=== PATIENT | female | born 1990 | race Asian ===

== ENCOUNTER 2021-02-13 07:43 | Observation (INO) ==
[2021-02-13] MEDS ORDERED: TERBUTALINE SULFATE 1 MG/ML VIAL SQ ONE (08:22)
[2021-02-13 08:36] LABS: Basophils # (auto) 0.02 K/uL (0-0.2); Basophils % (auto) 0.2 %; Eosinophils # (auto) 0.16 K/uL (0-0.5); Eosinophils % (auto) 1.9 %; Hemoglobin 11.8 g/dL (12.0-16.0); Immature Granulocytes # (auto) 0.05 K/uL (0.00-0.02); Immature Granulocytes % (auto) 0.6 %; Lymphocytes # (auto) 1.85 K/uL (1.2-3.4); Lymphocytes % (auto) 21.6 %; Mean Corpuscular Hemoglobin 30.4 pg (25-34); Mean Corpuscular Hgb Conc 33.7 g/dL (32-36); Mean Corpuscular Volume 90.2 fL (80-100); Mean Platelet Volume 9.9 fL (7.4-10.4); Monocytes # (auto) 0.64 K/uL (0.11-0.59); Monocytes % (auto) 7.5 %; Neutrophils # (auto) 5.86 K/uL (1.4-6.5); Neutrophils % (auto) 68.2 %; Platelet Count 189 K/uL (130-400); RDW Standard Deviation 42.7 fL (36.4-46.3); Red Blood Count 3.88 M/uL (4.2-5.4); White Blood Count 8.58 K/uL (4.8-10.8)
--- NOTE | 2021-02-13 08:46 | History & Physical Report ---
Date of Service February 13, 2021 Assessment & Plan (1) Breech presentation: (2) 36 weeks gestation of : Plan: patient aware of options with breech presentation of fetus, can do nothing, plan 39wk c/s if still breech, reviewed breech exercises, can attempt ecv. In my hands, pt aware ecv success rate is 50-50 and baby could turn back. Risks like abruption, bleeding, PROM, PTL, distress, need for emergency delivery, emergency c/s reviewed. Patient desires ecv and consent reviewed and signed. Plan terbutaline prior to attempt, explained rationale. They deny questions and want to proceed. Admission and Anticipated Discharge Date Admission Date: February 13, 2021 History of Present Illness Chief Complaint: breech presentation of fetus for planned ecv Primary Care Provider: [facility] 30yo at 36+wks ega presents to L&D with above CC. She notes no changes overnight. Was seen for her routine visit yesterday and noted to be breech. Formal u/s with nl dvp and no nuchal. She was counseled about options and de sires trial of ecv. PNC c/b 1. breech presentation PNL rh pos, ri, gbs done yesterday OBH: g1 GYNH: nl pap no stds Allergies Allergy/AdvReac Type Severity Reaction Status Date / Time No Known Drug Allergies Allergy Verified 02/12/21 13:55 lactose AdvReac Unknown GI upset Verified 02/12/21 13:55 bandaid AdvReac Mild itchy Uncoded 02/12/21 13:55 dust AdvReac Unknown runny nose Uncoded 02/12/21 13:55 Home Medications Medication Instructions Recorded Confirmed Type prenat.vits,liya,ejq-fvdo-puoye 1 tab PO DAILY 08/20/20 02/12/21 History Breast Pump #1 ea 12/18/20 02/12/21 Rx Patient History Medical History (Updated 02/13/21 @ 08:44 by Zoila Ocampo MD, FACOG) Enlarged thyroid Right thyroid nodule Known since 2018, cystic solid >5 cm s/p FNA in 08/2020 benign follicular Family History (Updated 08/20/20 @ 15:18 by Nisa Barron) Other Hypertension Social History (Updated 02/10/21 @ 15:19 by Nisa Barron) Smoking Status: Never smoker Hx Alcohol Use: No Hx Substance Use: No Preferred Language: Mandarin Macedonian Beliefs That Will Affect Care: None marital status: marital status details: Alex (35) [phone] Current Living Situation: Spouse Current Living Situation Comment: lives with spouse. current occupational status: unemployed Other Information That Helps Us Care for You: No Feels Safe at Home: Yes Safety Concerns: Feels Safe At This Time Assistive Devices: None Review of Systems as per Subjective / HPI; no problem reported Physical Exam Constitutional: WD/WN, vitals as above Gastrointestinal (Abdomen): soft gravid nt Neurologic: grossly normal Psychiatric: A+Ox3, euthymic affect Genitourinary: OB Exam Abdomen: + breech (by u/s this am) OB Exam Monitor Tracing: + external FHT monitor used (130 mod variability, reactive), + external uterine monitor used (irreg), + category I and + normal FHT variability Results & Data ([facility]) Vital Signs (Past 12 Hours) Vital Signs Temp Resp 02/13/21 07:56 98.1 F 20 Coding Level of Care Code None Diagnoses Breech presentation O32.1XX0 36 weeks gestation of Z3A.36
--- NOTE | 2021-02-13 09:08 | Obstetrical Progress Note ---
Date of Service February 13, 2021 Assessment & Plan (1) Breech presentation: (2) 36 weeks gestation of : Plan: ECV successful. Will monitor fhts for about one hour and then plan d/c home FHTs 140, categ 1 thus far. Admission and Anticipated Discharge Date Admission Date: February 13, 2021 Subjective S/p terbutaline Physical Exam Genitourinary: PROCEDURE: backward roll attempted at first and fetus to cephalic, fhts 140s, successful ecv Results & Data ([facility]) Vital Signs (Past 12 Hours) Vital Signs Temp Pulse Resp BP Pulse Ox 02/13/21 09:01 99 H 100 02/13/21 08:56 88 99 02/13/21 08:51 98 H 100 02/13/21 08:46 94 H 98 02/13/21 08:45 84 103/62 02/13/21 07:56 98.1 F 20 02/13/21 07:51 98.1 F 20 PG Care Time/CCT Total # of Minutes Spent Total Time Spent with Patient: Total time spent is greater than 50% in coordination of care (as documented) at patient's floor/unit and/or counseling patient: Coding Level of Care Code None Diagnoses Breech presentation O32.1XX0 36 weeks gestation of Z3A.36 CPT Codes Misx Procedure Codes - 86119 NST: 77543 NST ([id number]) Misx Procedure Codes - 54497 External cephalic version: 97657 External cephalic version ([id number]) 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
--- NOTE | 2021-02-13 11:21 | Obstetrical Progress Note ---
Date of Service February 13, 2021 Assessment & Plan (1) 36 weeks gestation of : (2) Successful external cephalic version: Plan: stable, can go home. has appt next wk. call with any concerns. remains cephalic. fhts reactive, categ 1. Admission and Anticipated Discharge Date Admission Date: February 13, 2021 Subjective pt sleeping , denies pain. no rom, no vb. Physical Exam Genitourinary: OB Exam Abdomen: + vertex (by u/s) OB Exam Monitor Tracing: + external FHT monitor used (reactive ,categ 1. ), + external uterine monitor used (irritability, now irregular ctx. ), + category I and + normal FHT nehal iability Results & Data ([facility]) Vital Signs (Past 12 Hours) Vital Signs Temp Pulse Resp BP Pulse Ox 02/13/21 11:11 74 97 02/13/21 11:06 76 97 02/13/21 11:01 75 97 02/13/21 10:56 79 98 02/13/21 10:51 83 96 02/13/21 10:46 82 97 02/13/21 10:41 83 97 02/13/21 10:36 96 H 97 02/13/21 10:31 83 96 02/13/21 10:11 72 97 02/13/21 10:06 70 97 02/13/21 10:01 75 96 02/13/21 09:56 71 97 02/13/21 09:51 72 96 02/13/21 09:46 82 98 02/13/21 09:41 79 98 02/13/21 09:36 83 98 02/13/21 09:31 90 98 02/13/21 09:26 89 99 02/13/21 09:21 90 98 02/13/21 09:16 99 H 98 02/13/21 09:11 96 H 98 02/13/21 09:06 95 H 99 02/13/21 09:01 99 H 100 02/13/21 08:56 88 99 02/13/21 08:51 98 H 100 02/13/21 08:46 94 H 98 02/13/21 08:45 84 103/62 02/13/21 07:56 98.1 F 20 02/13/21 07:51 98.1 F 20 PG Care Time/CCT Total # of Minutes Spent Total Time Spent with Patient: Total time spent is greater than 50% in coordination of care (as documented) at patient's floor/unit and/or counseling patient: Coding Level of Care Code None Diagnoses 36 weeks gestation of Z3A.36 Successful external cephalic version
--- NOTE | 2021-02-14 21:40 | Discharge Summary ---
Date of Service Date of admission and discharge: February 13, 2021 Admission HPI Per Admitting Provider 30yo at 36+wks [place] presents to L&D with plan for ECV for breech presentation. She notes no changes overnight. Was seen for her routine visit yesterday and noted to be breech. Formal u/s with nl dvp and no nuchal. She was counseled about options and desires trial of ecv. PNC c/b 1. breech presentation PNL rh pos, ri, gbs done yesterday OBH: g1 GYNH: nl pap no stds Discharge Data Procedures Performed External Cephalic Version Hospital Course (1) 36 weeks gestation of : (2) Breech presentation: (3) Successful external cephalic version: The patient underwent the above stated procedure which was successful. She was monitored for a few hours subsequenty and when stable was sent home. The fetus remained cephalic. She will followup in office as schedued. Parameters reviewed to call. Coding Level of Care Code None Diagnoses 36 weeks gestation of Z3A.36 Breech presentation O32.1XX0 Successful external cephalic version
== END 2021-02-13 11:33 | disposition home or self-care (01) ==
LOC: 4S1 → OPB 07:56 → INTOOBSV 07:56 → EDSTATUS 10:15 → PREOBSVTOIN 10:24 → PREINTOOBSV 10:25

== ENCOUNTER 2021-03-17 23:04 | Inpatient (IN) ==
[2021-03-17] MEDS ORDERED: OXYTOCIN 30 UNITS/500 ML BAG IV PRN ×2 (23:16→23:17)
[2021-03-17 23:37] LABS: Hematocrit (blood only) 35.4 % (37-47); Mean Corpuscular Hemoglobin 30.2 pg (25-34); Mean Corpuscular Hgb Conc 33.9 g/dL (32-36); Mean Corpuscular Volume 88.9 fL (80-100); Mean Platelet Volume 10.6 fL (7.4-10.4); Platelet Count 207 K/uL (130-400); RDW Coefficient of Variation 13.4 % (11.5-14.5); Red Blood Count 3.98 M/uL (4.2-5.4); White Blood Count 9.42 K/uL (4.8-10.8)
--- NOTE | 2021-03-18 00:11 | Anesthesiology Consultation ---
Date of Service March 18, 2021 Assessment & Plan (1) Encounter for pre-operative examination: Chart Review Chart Review: Acceptable Risk for Labor Epidural History Height/Weight Height: 5 ft 2 in Weight: 63.503 kg Allergies Allergy/AdvReac Type Severity Reaction Status Date / Time No Known Drug Allergies Allergy Rash Verified 03/17/21 19:58 bandaid Allergy Mild itchy Uncoded 03/17/21 19:58 dust Allergy Unknown Congested Uncoded 03/17/21 19:58 Medications Home Medications Medication Instructions Recorded Confirmed Last Taken prenat.vits,liya,xrw-uqdk-rceou 1 tab PO DAILY 08/20/20 03/17/21 Unknown Breast Pump #1 ea 12/18/20 03/17/21 Unknown Active Medications Generic Name Dose Route Start Last Admin Trade Name Freq PRN Reason Stop Dose Admin Oxytocin 30 units in 500 mls @ 1 mls/hr 03/17/21 23:17 03/18/21 00:13 Pitocin IV 03/19/21 23:16 0.06 units/hr .Q24H PRN 1 mls/hr Labor Induction/Augmentation Administration Protocol 0.06 UNITS/HR Lactated Ringer's 1,000 mls @ 125 mls/hr 03/17/21 23:16 03/18/21 00:13 Lr IV 03/19/21 23:15 999 mls/hr .Q8H PRN Administration L&D Protocol Protocol Past Medical History Medical History (Updated 03/18/21 @ 00:52 by Mark Aguayo MD) Enlarged thyroid Right thyroid nodule Known since 2017, cystic solid >5 cm s/p FNA in 08/2020 benign follicular Past Family History Family History Other Hypertension Past Surgical History Surgical History (Updated 03/18/21 @ 00:11 by Mark Aguayo MD) No significant past surgical history Social History Smoking Status: Never smoker Hx Alcohol Use: No Hx Substance Use: No Physical Exam Vital Signs Last Vital Signs Temp 36.9 C 03/17/21 23:18 Pulse 94 H 03/18/21 00:42 Resp 18 03/18/21 00:30 BP 111/66 03/18/21 00:14 Pulse Ox 97 03/18/21 00:42 Testing Laboratory Results 03/17/21 23:26
[2021-03-18] MEDS: LACTATED RINGER'S 1,000 ML IV PRN ×5 (00:13→18:33)
[2021-03-18] MEDS ORDERED: fentaNYL citrate 100 MCG/2 ML VIAL ONE (00:17)
[2021-03-18] MEDS ORDERED: BUPIVACAINE 0.25% 30 ML VIAL ONE (00:17)
[2021-03-18] MEDS ORDERED: fentaNYL 2MCG/ML ROPIVACAINE 1.25MG/ML 100 ML BAG EPI ONE (00:17)
[2021-03-18] MEDS ORDERED: SODIUM CHLORIDE 0.9% INJ 10 ML VIAL ONE (00:17)
[2021-03-18] MEDS ORDERED: ePHEDrine sulfate 50 MG/ML AMP ONE (00:17)
[2021-03-18] MEDS ORDERED: NALOXONE HCL 1 MG in SODIUM CHLORIDE 0.9% 1000ML 1,000 ML IV PRN ×2 (01:09→20:44)
[2021-03-18] MEDS ORDERED: NALOXONE HCL 0.4 MG/1 ML VIAL/CARP IV PRN ×2 (01:09→20:44)
[2021-03-18] MEDS ORDERED: ePHEDrine sulfate 50 MG/ML AMP IV PRN ×2 (01:09→20:44)
[2021-03-18] MEDS ORDERED: ONDANSETRON INJ 2 MG/ML 2 ML VIAL IV PRN ×2 (01:09→20:44)
--- NOTE | 2021-03-18 06:19 | Labor Progress Brief Note ---
Date of Service March 18, 2021 Subjective comfortable with epidural Assessment & Plan (1) 40 weeks gestation of : Plan: making nice change, arom, continue current management. anticipate . Admission and Anticipated Discharge Date Admission Date: March 17, 2021 Physical Exam Physical Exam: cx--5-6/75/-2 arom--copious clear toco--q1-2min, pit at 12 efm--145 with min/mod variability, small accels, no decels Results & Data ([facility]) Vital Signs (Past 12 Hours) Vital Signs Temp Pulse Resp BP Pulse Ox 03/18/21 06:12 76 98 03/18/21 06:07 67 98 03/18/21 06:02 69 96 03/18/21 06:01 91 H 97/60 L 03/18/21 05:57 83 96 03/18/21 05:52 66 96 03/18/21 05:47 66 101/59 L 96 03/18/21 05:42 68 95 03/18/21 05:37 73 95 03/18/21 05:32 70 110/55 L 96 03/18/21 05:30 18 03/18/21 05:27 65 97 03/18/21 05:22 67 97 03/18/21 05:17 67 97 03/18/21 05:16 72 135/63 03/18/21 05:12 88 97 03/18/21 05:07 90 97 03/18/21 05:02 64 96 03/18/21 05:00 18 03/18/21 04:57 64 96 03/18/21 04:52 67 96 03/18/21 04:47 66 97 03/18/21 04:42 66 97 03/18/21 04:37 74 96 03/18/21 04:32 64 96 03/18/21 04:31 71 110/70 03/18/21 04:30 18 03/18/21 04:27 64 96 03/18/21 04:22 68 97 03/18/21 04:17 66 106/66 96 03/18/21 04:12 76 96 03/18/21 04:07 76 96 03/18/21 04:03 80 99/58 L 03/18/21 04:02 78 95 03/18/21 03:59 36.9 C 18 03/18/21 03:57 73 96 03/18/21 03:52 77 95 03/18/21 03:47 80 95 03/18/21 03:42 68 95 03/18/21 03:37 66 95 03/18/21 03:32 74 95 03/18/21 03:27 68 94 03/18/21 03:22 72 94 03/18/21 03:17 66 95 03/18/21 03:12 72 94 03/18/21 03:07 69 95 03/18/21 03:02 72 95 03/18/21 03:01 65 95/54 L 03/18/21 02:57 72 95 03/18/21 02:52 69 94 03/18/21 02:47 71 94 03/18/21 02:46 69 102/55 L 03/18/21 02:42 70 92 03/18/21 02:37 69 94 03/18/21 02:32 74 94 03/18/21 02:31 64 97/53 L 03/18/21 02:30 18 03/18/21 02:27 73 93 03/18/21 02:22 69 94 03/18/21 02:17 68 94 03/18/21 02:16 70 103/56 L 03/18/21 02:12 67 94 03/18/21 02:07 69 93 03/18/21 02:02 70 94 03/18/21 02:01 70 101/55 L 03/18/21 02:00 20 03/18/21 01:57 74 94 03/18/21 01:52 68 95 03/18/21 01:50 69 94 03/18/21 01:47 78 110/63 94 03/18/21 01:45 79 94 03/18/21 01:42 70 95 03/18/21 01:38 79 94 03/18/21 01:37 75 95 03/18/21 01:32 76 95 03/18/21 01:30 79 20 99/60 L 94 03/18/21 01:27 78 97 03/18/21 01:26 79 103/62 03/18/21 01:22 82 100/55 L 95 03/18/21 01:19 75 103/57 L 03/18/21 01:17 90 97 03/18/21 01:15 36.9 C 18 03/18/21 01:14 79 101/57 L 03/18/21 01:12 76 97/54 L 97 03/18/21 01:10 75 18 103/59 L 03/18/21 01:08 75 107/66 03/18/21 01:07 78 98 03/18/21 01:06 74 106/64 03/18/21 01:04 85 119/57 L 03/18/21 01:02 85 20 111/72 95 03/18/21 01:00 90 116/73 03/18/21 00:57 82 96 03/18/21 00:54 18 03/18/21 00:52 86 96 03/18/21 00:47 90 96 03/18/21 00:42 94 H 97 03/18/21 00:35 92 H 96 03/18/21 00:30 89 18 96 03/18/21 00:25 91 H 96 03/18/21 00:20 82 96 03/18/21 00:15 83 97 03/18/21 00:14 73 111/66 03/17/21 23:18 36.9 C 88 18 104/55 L 03/17/21 23:15 88 104/55 L 03/17/21 23:12 36.9 C 20 Coding Level of Care Code None Diagnoses 40 weeks gestation of Z3A.40
--- NOTE | 2021-03-18 08:55 | Labor Progress Brief Note ---
Date of Service March 18, 2021 Subjective Comfortable with epidural. Assessment & Plan (1) Post term over 40 weeks: Plan: Induction of labor in progress. Of note, this patient underwent successful ECV for breech presentation a few weeks ago. The fetus is vertex but transverse and asynclitic currently, without interval progress since last exam and with a dysfunctional contraction pattern. This may be able to be surpassed with repositioning and pitocin titration, and for now there is no indication to abandon the induction attempt. Repositioning and titration are ongoing. status with accel obtained is reassuring. Admission and Anticipated Discharge Date Admission Date: March 17, 2021 Physical Exam Physical Exam: Cervix 5-6/75/-2, clear LOF continues, head palpates in LOT with posterior asynclitism. [place] dysfunctional pattern, 4 contractions less than a minute apart followed by 4-5min break. Pit @ 13. FHT Cat 2, normal baseline and variability but demonstrates a late decel by the end of a run of 4 closely spaced contractions. Of note, + scalp stimulation accel during exam. Results & Data ([facility]) Vital Signs (Past 12 Hours) Vital Signs Temp Pulse Resp BP Pulse Ox 03/18/21 08:47 60 97/55 L 98 03/18/21 08:42 69 96 03/18/21 08:37 62 97 03/18/21 08:32 56 L 106/67 96 03/18/21 08:27 62 95 03/18/21 08:22 53 L 95 03/18/21 08:17 56 L 96 03/18/21 08:16 53 L 108/69 03/18/21 08:12 55 L 96 03/18/21 08:07 56 L 97 03/18/21 08:02 66 97 03/18/21 08:01 58 L 20 94/55 L 03/18/21 07:57 54 L 96 03/18/21 07:52 62 96 03/18/21 07:47 53 L 97 03/18/21 07:46 53 L 104/53 L 03/18/21 07:42 60 97 03/18/21 07:37 61 97 03/18/21 07:32 59 L 96 03/18/21 07:31 98.4 F 64 20 113/57 L 03/18/21 07:27 58 L 98 03/18/21 07:22 57 L 97 03/18/21 07:17 61 104/59 L 96 03/18/21 07:12 56 L 97 03/18/21 07:07 60 96 03/18/21 07:02 61 95 03/18/21 07:01 56 L 93/53 L 03/18/21 07:00 18 03/18/21 06:57 57 L 96 03/18/21 06:52 59 L 96 03/18/21 06:47 63 97 03/18/21 06:42 62 97 03/18/21 06:37 63 97 03/18/21 06:32 63 96 03/18/21 06:31 62 120/50 L 03/18/21 06:30 18 03/18/21 06:27 62 97 03/18/21 06:22 61 97 03/18/21 06:18 60 92/55 L 03/18/21 06:17 71 97 03/18/21 06:12 76 98 03/18/21 06:11 98.2 F 03/18/21 06:07 67 98 03/18/21 06:02 69 96 03/18/21 06:01 91 H 97/60 L 03/18/21 05:57 83 96 03/18/21 05:52 66 96 03/18/21 05:47 66 101/59 L 96 03/18/21 05:42 68 95 03/18/21 05:37 73 95 03/18/21 05:32 70 110/55 L 96 03/18/21 05:30 18 03/18/21 05:27 65 97 03/18/21 05:22 67 97 03/18/21 05:17 67 97 03/18/21 05:16 72 135/63 03/18/21 05:12 88 97 03/18/21 05:07 90 97 03/18/21 05:02 64 96 03/18/21 05:00 18 03/18/21 04:57 64 96 03/18/21 04:52 67 96 03/18/21 04:47 66 97 03/18/21 04:42 66 97 03/18/21 04:37 74 96 03/18/21 04:32 64 96 03/18/21 04:31 71 110/70 03/18/21 04:30 18 03/18/21 04:27 64 96 03/18/21 04:22 68 97 03/18/21 04:17 66 106/66 96 03/18/21 04:12 76 96 03/18/21 04:07 76 96 03/18/21 04:03 80 99/58 L 03/18/21 04:02 78 95 03/18/21 03:59 98.4 F 18 03/18/21 03:57 73 96 03/18/21 03:52 77 95 03/18/21 03:47 80 95 03/18/21 03:42 68 95 03/18/21 03:37 66 95 03/18/21 03:32 74 95 03/18/21 03:27 68 94 03/18/21 03:22 72 94 03/18/21 03:17 66 95 03/18/21 03:12 72 94 03/18/21 03:07 69 95 03/18/21 03:02 72 95 03/18/21 03:01 65 95/54 L 03/18/21 02:57 72 95 03/18/21 02:52 69 94 03/18/21 02:47 71 94 03/18/21 02:46 69 102/55 L 03/18/21 02:42 70 92 03/18/21 02:37 69 94 03/18/21 02:32 74 94 03/18/21 02:31 64 97/53 L 03/18/21 02:30 18 03/18/21 02:27 73 93 03/18/21 02:22 69 94 03/18/21 02:17 68 94 03/18/21 02:16 70 103/56 L 03/18/21 02:12 67 94 03/18/21 02:07 69 93 03/18/21 02:02 70 94 03/18/21 02:01 70 101/55 L 03/18/21 02:00 20 03/18/21 01:57 74 94 03/18/21 01:52 68 95 03/18/21 01:50 69 94 03/18/21 01:47 78 110/63 94 03/18/21 01:45 79 94 03/18/21 01:42 70 95 03/18/21 01:38 79 94 03/18/21 01:37 75 95 03/18/21 01:32 76 95 03/18/21 01:30 79 20 99/60 L 94 03/18/21 01:27 78 97 03/18/21 01:26 79 103/62 03/18/21 01:22 82 100/55 L 95 03/18/21 01:19 75 103/57 L 03/18/21 01:17 90 97 03/18/21 01:15 98.4 F 18 03/18/21 01:14 79 101/57 L 03/18/21 01:12 76 97/54 L 97 03/18/21 01:10 75 18 103/59 L 03/18/21 01:08 75 107/66 03/18/21 01:07 78 98 03/18/21 01:06 74 106/64 03/18/21 01:04 85 119/57 L 03/18/21 01:02 85 20 111/72 95 03/18/21 01:00 90 116/73 03/18/21 00:57 82 96 03/18/21 00:54 18 03/18/21 00:52 86 96 03/18/21 00:47 90 96 03/18/21 00:42 94 H 97 03/18/21 00:35 92 H 96 03/18/21 00:30 89 18 96 03/18/21 00:25 91 H 96 03/18/21 00:20 82 96 03/18/21 00:15 83 97 03/18/21 00:14 73 111/66 03/17/21 23:18 98.4 F 88 18 104/55 L 03/17/21 23:15 88 104/55 L 03/17/21 23:12 98.4 F 20 Coding Level of Care Code None Diagnoses Post term over 40 weeks O48.0
[2021-03-18] MEDS: fentaNYL 2MCG/ML ROPIVACAINE 1.25MG/ML 100 ML BAG EPI PRN ×2 (10:12→16:59)
[2021-03-18] MEDS ORDERED: NURSING L&D Epidural Breakthrough Pain Update ONE (10:56)
--- NOTE | 2021-03-18 12:10 | Labor Progress Brief Note ---
Date of Service March 18, 2021 Subjective Some new low back ache despite epidural. Assessment & Plan (1) Post term over 40 weeks: Plan: Patient has made cervical change but it's less than I would have expected for the number of hours that have passed. repositioning is still occurring, as asynclitism resolved, but at this time it still feels like an LOT presentation. I'm hopeful that with adequate contractions we may see the head rotate into an A/P presentation and then it may descend and more effectively cause cervical dilation to proceed - but patient and FOB were made aware that persistent OT presentation could occur and would interfere with success in vaginal delivery. Increasing pitocin is difficult since many of the contractions are too close together to allow it, but at other times there are long breaks in the pattern. IUPC could be used to allow titration upwards based on MVUs. IUPC placed after full information given to patient and FOB about relative risks and benefits, who gave verbal consent. Titrate to MVU 200-250. status allows for ongoing attempts at IOL at this time. Epidural bolus dose will be requested for patient's back ache as we are not very close to delivery. Admission and Anticipated Discharge Date Admission Date: March 17, 2021 Physical Exam Physical Exam: /1 Remains LOT but asynclitism is resolved FHT cat 1 with earlies [place] irregular; at times Q1-2, other times clusters with breaks in between Pit @ 15 LOF clear continues, small bloody show Results & Data ([facility]) Vital Signs (Past 12 Hours) Vital Signs Temp Pulse Resp BP Pulse Ox 03/18/21 12:02 72 113/70 100 03/18/21 11:57 68 99 03/18/21 11:52 66 100 03/18/21 11:47 57 L 131/69 99 03/18/21 11:42 63 99 03/18/21 11:37 66 99 03/18/21 11:34 69 113/55 L 03/18/21 11:32 73 99 03/18/21 11:31 20 03/18/21 11:27 68 100 03/18/21 11:22 82 100 03/18/21 11:17 76 124/77 100 03/18/21 11:12 78 100 03/18/21 11:07 66 99 03/18/21 11:02 66 110/73 99 03/18/21 11:01 20 03/18/21 10:57 72 96 03/18/21 10:52 79 97 03/18/21 10:47 75 97 03/18/21 10:46 58 L 102/63 03/18/21 10:42 58 L 95 03/18/21 10:37 59 L 96 03/18/21 10:32 56 L 124/71 95 03/18/21 10:31 20 03/18/21 10:27 60 96 03/18/21 10:22 57 L 96 03/18/21 10:17 60 97 03/18/21 10:16 68 139/67 03/18/21 10:12 65 97 03/18/21 10:08 98.2 F 03/18/21 10:07 58 L 97 03/18/21 10:02 76 96 03/18/21 10:01 18 03/18/21 09:57 56 L 97 03/18/21 09:52 59 L 95 03/18/21 09:47 60 96 03/18/21 09:46 57 L 91/55 L 03/18/21 09:42 57 L 96 03/18/21 09:37 57 L 96 03/18/21 09:32 58 L 96 03/18/21 09:31 62 93/55 L 03/18/21 09:27 61 97 03/18/21 09:22 57 L 97 03/18/21 09:18 56 L 92/65 L 03/18/21 09:17 57 L 97 03/18/21 09:12 60 98 03/18/21 09:07 69 98 03/18/21 09:02 57 L 96 03/18/21 09:01 98.4 F 52 L 20 95/50 L 03/18/21 08:57 55 L 97 03/18/21 08:52 62 98 03/18/21 08:47 60 97/55 L 98 03/18/21 08:42 69 96 03/18/21 08:37 62 97 03/18/21 08:32 56 L 106/67 96 03/18/21 08:31 20 03/18/21 08:27 62 95 03/18/21 08:22 53 L 95 03/18/21 08:17 56 L 96 03/18/21 08:16 53 L 108/69 03/18/21 08:12 55 L 96 03/18/21 08:07 56 L 97 03/18/21 08:02 66 97 03/18/21 08:01 58 L 20 94/55 L 03/18/21 07:57 54 L 96 03/18/21 07:52 62 96 03/18/21 07:47 53 L 97 03/18/21 07:46 53 L 104/53 L 03/18/21 07:42 60 97 03/18/21 07:37 61 97 03/18/21 07:32 59 L 96 03/18/21 07:31 98.4 F 64 20 113/57 L 03/18/21 07:27 58 L 98 03/18/21 07:22 57 L 97 03/18/21 07:17 61 104/59 L 96 03/18/21 07:12 56 L 97 03/18/21 07:07 60 96 03/18/21 07:02 61 95 03/18/21 07:01 56 L 93/53 L 03/18/21 07:00 18 03/18/21 06:57 57 L 96 03/18/21 06:52 59 L 96 03/18/21 06:47 63 97 03/18/21 06:42 62 97 03/18/21 06:37 63 97 03/18/21 06:32 63 96 03/18/21 06:31 62 120/50 L 03/18/21 06:30 18 03/18/21 06:27 62 97 03/18/21 06:22 61 97 03/18/21 06:18 60 92/55 L 03/18/21 06:17 71 97 03/18/21 06:12 76 98 03/18/21 06:11 98.2 F 03/18/21 06:07 67 98 03/18/21 06:02 69 96 03/18/21 06:01 91 H 97/60 L 03/18/21 05:57 83 96 03/18/21 05:52 66 96 03/18/21 05:47 66 101/59 L 96 03/18/21 05:42 68 95 03/18/21 05:37 73 95 03/18/21 05:32 70 110/55 L 96 03/18/21 05:30 18 03/18/21 05:27 65 97 03/18/21 05:22 67 97 03/18/21 05:17 67 97 03/18/21 05:16 72 135/63 03/18/21 05:12 88 97 03/18/21 05:07 90 97 03/18/21 05:02 64 96 03/18/21 05:00 18 03/18/21 04:57 64 96 03/18/21 04:52 67 96 03/18/21 04:47 66 97 03/18/21 04:42 66 97 03/18/21 04:37 74 96 03/18/21 04:32 64 96 03/18/21 04:31 71 110/70 03/18/21 04:30 18 03/18/21 04:27 64 96 03/18/21 04:22 68 97 03/18/21 04:17 66 106/66 96 03/18/21 04:12 76 96 03/18/21 04:07 76 96 03/18/21 04:03 80 99/58 L 03/18/21 04:02 78 95 03/18/21 03:59 98.4 F 18 03/18/21 03:57 73 96 03/18/21 03:52 77 95 03/18/21 03:47 80 95 03/18/21 03:42 68 95 03/18/21 03:37 66 95 03/18/21 03:32 74 95 03/18/21 03:27 68 94 03/18/21 03:22 72 94 03/18/21 03:17 66 95 03/18/21 03:12 72 94 03/18/21 03:07 69 95 03/18/21 03:02 72 95 03/18/21 03:01 65 95/54 L 03/18/21 02:57 72 95 03/18/21 02:52 69 94 03/18/21 02:47 71 94 03/18/21 02:46 69 102/55 L 03/18/21 02:42 70 92 03/18/21 02:37 69 94 03/18/21 02:32 74 94 03/18/21 02:31 64 97/53 L 03/18/21 02:30 18 03/18/21 02:27 73 93 03/18/21 02:22 69 94 03/18/21 02:17 68 94 03/18/21 02:16 70 103/56 L 03/18/21 02:12 67 94 03/18/21 02:07 69 93 03/18/21 02:02 70 94 03/18/21 02:01 70 101/55 L 03/18/21 02:00 20 03/18/21 01:57 74 94 03/18/21 01:52 68 95 03/18/21 01:50 69 94 03/18/21 01:47 78 110/63 94 03/18/21 01:45 79 94 03/18/21 01:42 70 95 03/18/21 01:38 79 94 03/18/21 01:37 75 95 03/18/21 01:32 76 95 03/18/21 01:30 79 20 99/60 L 94 03/18/21 01:27 78 97 03/18/21 01:26 79 103/62 03/18/21 01:22 82 100/55 L 95 03/18/21 01:19 75 103/57 L 03/18/21 01:17 90 97 03/18/21 01:15 98.4 F 18 03/18/21 01:14 79 101/57 L 03/18/21 01:12 76 97/54 L 97 03/18/21 01:10 75 18 103/59 L 03/18/21 01:08 75 107/66 03/18/21 01:07 78 98 03/18/21 01:06 74 106/64 03/18/21 01:04 85 119/57 L 03/18/21 01:02 85 20 111/72 95 03/18/21 01:00 90 116/73 03/18/21 00:57 82 96 03/18/21 00:54 18 03/18/21 00:52 86 96 03/18/21 00:47 90 96 03/18/21 00:42 94 H 97 03/18/21 00:35 92 H 96 03/18/21 00:30 89 18 96 03/18/21 00:25 91 H 96 03/18/21 00:20 82 96 03/18/21 00:15 83 97 03/18/21 00:14 73 111/66 Coding Level of Care Code None Diagnoses Post term over 40 weeks O48.0
--- NOTE | 2021-03-18 14:19 | Labor Progress Brief Note ---
Date of Service March 18, 2021 Subjective Back pain resolved when external toco monitor and strap were removed per patient. Assessment & Plan (1) Post term over 40 weeks: Plan: Discussed with patient and FOB that she has had adequate contractions for 2 hours (documented since placement of IUPC at noon), and we define failure as 6 hours without change, but that I suspect her lack of change is due to persistent transverse position more than inadequate labor. She was offered options to continue IOL to reach 6 hours of adequacy, then reassess cervix, and understand we would recommend at that time if no further change - or she could elect to move to at any time before then should she not wish to continue, as risks of atony and infection increase with each hour of ongoing induction. Patient is considering her options at this time. Admission and Anticipated Discharge Date Admission Date: March 17, 2021 Physical Exam Physical Exam: Cervix unchanged, fetus remains LOT FHT Cat 1 with early decels Zaira Q2-4 but MVU adequate 200-260 since IUPC placed (so, at noon --> 6pm would be 6 hours adequate) Results & Data ([facility]) Vital Signs (Past 12 Hours) Vital Signs Temp Pulse Resp BP Pulse Ox 03/18/21 14:12 68 97 03/18/21 14:07 65 98 03/18/21 14:02 72 98 03/18/21 14:01 62 120/56 L 03/18/21 13:57 67 97 03/18/21 13:52 88 97 03/18/21 13:47 71 98 03/18/21 13:42 61 97 03/18/21 13:37 67 96 03/18/21 13:32 78 96 03/18/21 13:31 88 98/65 L 03/18/21 13:27 70 95 03/18/21 13:22 74 97 03/18/21 13:17 68 94 03/18/21 13:16 69 100/62 03/18/21 13:12 72 96 03/18/21 13:07 75 97 03/18/21 13:02 68 95 03/18/21 13:01 68 99/65 L 03/18/21 12:57 66 96 03/18/21 12:52 72 96 03/18/21 12:47 74 96 03/18/21 12:46 61 101/64 03/18/21 12:42 68 96 03/18/21 12:37 65 96 03/18/21 12:32 64 96 03/18/21 12:31 60 124/78 03/18/21 12:27 60 96 03/18/21 12:22 66 97 03/18/21 12:17 87 99 03/18/21 12:16 62 121/66 03/18/21 12:12 69 99 03/18/21 12:07 65 99 03/18/21 12:02 72 113/70 100 03/18/21 11:57 68 99 03/18/21 11:52 66 100 03/18/21 11:47 57 L 131/69 99 03/18/21 11:42 63 99 03/18/21 11:37 66 99 03/18/21 11:34 69 113/55 L 03/18/21 11:32 73 99 03/18/21 11:31 20 03/18/21 11:27 68 100 03/18/21 11:22 82 100 03/18/21 11:17 76 124/77 100 03/18/21 11:12 78 100 03/18/21 11:07 66 99 03/18/21 11:02 66 110/73 99 03/18/21 11:01 20 03/18/21 10:57 72 96 03/18/21 10:52 79 97 03/18/21 10:47 75 97 03/18/21 10:46 58 L 102/63 03/18/21 10:42 58 L 95 03/18/21 10:37 59 L 96 03/18/21 10:32 56 L 124/71 95 03/18/21 10:31 20 03/18/21 10:27 60 96 03/18/21 10:22 57 L 96 03/18/21 10:17 60 97 03/18/21 10:16 68 139/67 03/18/21 10:12 65 97 03/18/21 10:08 98.2 F 03/18/21 10:07 58 L 97 03/18/21 10:02 76 96 03/18/21 10:01 18 03/18/21 09:57 56 L 97 03/18/21 09:52 59 L 95 03/18/21 09:47 60 96 03/18/21 09:46 57 L 91/55 L 03/18/21 09:42 57 L 96 03/18/21 09:37 57 L 96 03/18/21 09:32 58 L 96 03/18/21 09:31 62 93/55 L 03/18/21 09:27 61 97 03/18/21 09:22 57 L 97 03/18/21 09:18 56 L 92/65 L 03/18/21 09:17 57 L 97 03/18/21 09:12 60 98 03/18/21 09:07 69 98 03/18/21 09:02 57 L 96 03/18/21 09:01 98.4 F 52 L 20 95/50 L 03/18/21 08:57 55 L 97 03/18/21 08:52 62 98 03/18/21 08:47 60 97/55 L 98 03/18/21 08:42 69 96 03/18/21 08:37 62 97 03/18/21 08:32 56 L 106/67 96 03/18/21 08:31 20 03/18/21 08:27 62 95 03/18/21 08:22 53 L 95 03/18/21 08:17 56 L 96 03/18/21 08:16 53 L 108/69 03/18/21 08:12 55 L 96 03/18/21 08:07 56 L 97 03/18/21 08:02 66 97 03/18/21 08:01 58 L 20 94/55 L 03/18/21 07:57 54 L 96 03/18/21 07:52 62 96 03/18/21 07:47 53 L 97 03/18/21 07:46 53 L 104/53 L 03/18/21 07:42 60 97 03/18/21 07:37 61 97 03/18/21 07:32 59 L 96 03/18/21 07:31 98.4 F 64 20 113/57 L 03/18/21 07:27 58 L 98 03/18/21 07:22 57 L 97 03/18/21 07:17 61 104/59 L 96 03/18/21 07:12 56 L 97 03/18/21 07:07 60 96 03/18/21 07:02 61 95 03/18/21 07:01 56 L 93/53 L 03/18/21 07:00 18 03/18/21 06:57 57 L 96 03/18/21 06:52 59 L 96 03/18/21 06:47 63 97 03/18/21 06:42 62 97 03/18/21 06:37 63 97 03/18/21 06:32 63 96 03/18/21 06:31 62 120/50 L 03/18/21 06:30 18 03/18/21 06:27 62 97 03/18/21 06:22 61 97 03/18/21 06:18 60 92/55 L 03/18/21 06:17 71 97 03/18/21 06:12 76 98 03/18/21 06:11 98.2 F 03/18/21 06:07 67 98 03/18/21 06:02 69 96 03/18/21 06:01 91 H 97/60 L 03/18/21 05:57 83 96 03/18/21 05:52 66 96 03/18/21 05:47 66 101/59 L 96 03/18/21 05:42 68 95 03/18/21 05:37 73 95 03/18/21 05:32 70 110/55 L 96 03/18/21 05:30 18 03/18/21 05:27 65 97 03/18/21 05:22 67 97 03/18/21 05:17 67 97 03/18/21 05:16 72 135/63 03/18/21 05:12 88 97 03/18/21 05:07 90 97 03/18/21 05:02 64 96 03/18/21 05:00 18 03/18/21 04:57 64 96 03/18/21 04:52 67 96 03/18/21 04:47 66 97 03/18/21 04:42 66 97 03/18/21 04:37 74 96 03/18/21 04:32 64 96 03/18/21 04:31 71 110/70 03/18/21 04:30 18 03/18/21 04:27 64 96 03/18/21 04:22 68 97 03/18/21 04:17 66 106/66 96 03/18/21 04:12 76 96 03/18/21 04:07 76 96 03/18/21 04:03 80 99/58 L 03/18/21 04:02 78 95 03/18/21 03:59 98.4 F 18 03/18/21 03:57 73 96 03/18/21 03:52 77 95 03/18/21 03:47 80 95 03/18/21 03:42 68 95 03/18/21 03:37 66 95 03/18/21 03:32 74 95 03/18/21 03:27 68 94 03/18/21 03:22 72 94 03/18/21 03:17 66 95 03/18/21 03:12 72 94 03/18/21 03:07 69 95 03/18/21 03:02 72 95 03/18/21 03:01 65 95/54 L 03/18/21 02:57 72 95 03/18/21 02:52 69 94 03/18/21 02:47 71 94 03/18/21 02:46 69 102/55 L 03/18/21 02:42 70 92 03/18/21 02:37 69 94 03/18/21 02:32 74 94 03/18/21 02:31 64 97/53 L 03/18/21 02:30 18 03/18/21 02:27 73 93 03/18/21 02:22 69 94 03/18/21 02:17 68 94 03/18/21 02:16 70 103/56 L Coding Level of Care Code None Diagnoses Post term over 40 weeks O48.0
--- NOTE | 2021-03-18 18:23 | Labor Progress Brief Note ---
Date of Service March 18, 2021 Subjective Patient comfortable after another epidural bolus. Of note, she had been having more pelvic pain again, which actually led nurses to re-check her cervix at 5pm or so. I became aware of this exam via chart-checking. On my arrival to the patient's room just before 6pm, Rayomn was at the bedside assessing effect of recent bolus. The nurses (Christen who was new to this patient, followed afterwards by Alize who had examined the patient significantly earlier in the day) felt the cervix was changed to 8/90/0. Neither felt able to assess the position. Assessment & Plan (1) Post term over 40 weeks: Plan: Induction with minimal (if any) change since I took over care of patient this morning. Discussed with patient and FOB that despite the RNs' exam a few hours ago, my serial exams throughout the day today are consistently the same; I doubt that there has been any genuine cervical change. Over the course of 10 hours I would expect her to have progressed to delivery or at least be in her second stage, and the persistent LOT position likely explains why she has not been able to make significant progress despite multiple hours of documented adequate contractions. We discussed that she can continue induction yet again if she chooses, but that I am not optimistic that the additional time we spend doing so will result in vaginal delivery. I suspect instead we will only be increasing her risks of infection, PPH, and/or distress. Her temp is also noted now to be rising, at 99.9F. She and FOB are agreeable to proceeding with a t this time. Consent form reviewed line by line with Bo Velásquez RN present, and signed, with all questions answered. Admission and Anticipated Discharge Date Admission Date: March 17, 2021 Physical Exam Physical Exam: On my exam I find the patient to be unchanged from my last exam several hours ago: /-1. It remains in LOT presentation. I'm able to easily displace the head upwards with flow of clear amniotic fluid. FHT Cat 1 currently but has shown late decels intermittently since pitocin was resumed. (Around 4pm the pitocin was stopped due to deep late decels, then resumed when FHT were Cat1 for 20min. It resumed at 8mu/min and is currently at 9.) [employer] Q2-3m. Results & Data ([facility]) Vital Signs (Past 12 Hours) Vital Signs Temp Pulse Resp BP Pulse Ox 03/18/21 18:07 72 97 03/18/21 18:02 73 106/56 L 96 03/18/21 17:58 75 106/58 L 03/18/21 17:57 81 109/56 L 96 03/18/21 17:52 79 99/56 L 95 03/18/21 17:47 70 96 03/18/21 17:46 67 102/62 03/18/21 17:42 74 95 03/18/21 17:37 62 96 03/18/21 17:32 77 95 03/18/21 17:31 64 126/69 03/18/21 17:27 60 95 03/18/21 17:22 74 96 03/18/21 17:17 72 96 03/18/21 17:16 68 110/67 03/18/21 17:12 65 96 03/18/21 17:07 67 96 03/18/21 17:02 92 H 102/74 95 03/18/21 17:00 99.9 F H 03/18/21 16:57 77 96 03/18/21 16:52 77 96 03/18/21 16:47 72 96 03/18/21 16:46 63 115/76 03/18/21 16:42 61 95 03/18/21 16:37 80 96 03/18/21 16:32 70 96 03/18/21 16:31 78 107/59 L 03/18/21 16:27 69 96 03/18/21 16:22 60 97 03/18/21 16:17 74 98 03/18/21 16:16 78 120/62 03/18/21 16:12 65 97 03/18/21 16:07 64 98 03/18/21 16:02 62 97 03/18/21 16:01 64 116/59 L 03/18/21 15:57 61 97 03/18/21 15:52 75 97 03/18/21 15:47 57 L 101/55 L 100 03/18/21 15:42 60 100 03/18/21 15:37 71 100 03/18/21 15:32 63 107/58 L 100 03/18/21 15:27 65 100 03/18/21 15:22 71 100 03/18/21 15:17 70 99 03/18/21 15:16 73 105/58 L 03/18/21 15:12 60 96 03/18/21 15:07 68 97 03/18/21 15:02 68 97 03/18/21 15:01 70 141/60 H 03/18/21 14:57 70 98 03/18/21 14:52 72 99 03/18/21 14:47 66 98 03/18/21 14:46 65 120/82 03/18/21 14:42 60 100 03/18/21 14:37 66 99 03/18/21 14:32 72 99 03/18/21 14:31 82 131/75 03/18/21 14:27 78 98 03/18/21 14:22 66 97 03/18/21 14:17 67 97 03/18/21 14:16 67 129/76 03/18/21 14:12 68 97 03/18/21 14:07 65 98 03/18/21 14:02 99.0 F 72 98 03/18/21 14:01 62 20 120/56 L 03/18/21 13:57 67 97 03/18/21 13:52 88 97 03/18/21 13:47 71 98 03/18/21 13:42 61 97 03/18/21 13:37 67 96 03/18/21 13:32 78 96 03/18/21 13:31 88 98/65 L 03/18/21 13:27 70 95 03/18/21 13:22 74 97 03/18/21 13:17 68 94 03/18/21 13:16 69 100/62 03/18/21 13:12 72 96 03/18/21 13:07 75 97 03/18/21 13:02 68 95 03/18/21 13:01 68 99/65 L 03/18/21 12:57 66 96 03/18/21 12:52 72 96 03/18/21 12:47 74 96 03/18/21 12:46 61 101/64 03/18/21 12:42 68 96 03/18/21 12:37 65 96 03/18/21 12:32 64 96 03/18/21 12:31 60 124/78 03/18/21 12:27 60 96 03/18/21 12:22 66 97 03/18/21 12:17 87 99 03/18/21 12:16 62 121/66 03/18/21 12:12 69 99 03/18/21 12:07 65 99 03/18/21 12:02 72 113/70 100 03/18/21 11:57 68 99 03/18/21 11:52 66 100 03/18/21 11:47 57 L 131/69 99 03/18/21 11:42 63 99 03/18/21 11:37 66 99 03/18/21 11:34 69 113/55 L 03/18/21 11:32 73 99 03/18/21 11:31 20 03/18/21 11:27 68 100 03/18/21 11:22 82 100 03/18/21 11:17 76 124/77 100 03/18/21 11:12 78 100 03/18/21 11:07 66 99 03/18/21 11:02 66 110/73 99 03/18/21 11:01 20 03/18/21 10:57 72 96 03/18/21 10:52 79 97 03/18/21 10:47 75 97 03/18/21 10:46 58 L 102/63 03/18/21 10:42 58 L 95 03/18/21 10:37 59 L 96 03/18/21 10:32 56 L 124/71 95 03/18/21 10:31 20 03/18/21 10:27 60 96 03/18/21 10:22 57 L 96 03/18/21 10:17 60 97 03/18/21 10:16 68 139/67 03/18/21 10:12 65 97 03/18/21 10:08 98.2 F 03/18/21 10:07 58 L 97 03/18/21 10:02 76 96 03/18/21 10:01 18 03/18/21 09:57 56 L 97 03/18/21 09:52 59 L 95 03/18/21 09:47 60 96 03/18/21 09:46 57 L 91/55 L 03/18/21 09:42 57 L 96 03/18/21 09:37 57 L 96 03/18/21 09:32 58 L 96 03/18/21 09:31 62 93/55 L 03/18/21 09:27 61 97 03/18/21 09:22 57 L 97 03/18/21 09:18 56 L 92/65 L 03/18/21 09:17 57 L 97 03/18/21 09:12 60 98 03/18/21 09:07 69 98 03/18/21 09:02 57 L 96 03/18/21 09:01 98.4 F 52 L 20 95/50 L 03/18/21 08:57 55 L 97 03/18/21 08:52 62 98 03/18/21 08:47 60 97/55 L 98 03/18/21 08:42 69 96 03/18/21 08:37 62 97 03/18/21 08:32 56 L 106/67 96 03/18/21 08:31 20 03/18/21 08:27 62 95 03/18/21 08:22 53 L 95 03/18/21 08:17 56 L 96 03/18/21 08:16 53 L 108/69 03/18/21 08:12 55 L 96 03/18/21 08:07 56 L 97 03/18/21 08:02 66 97 03/18/21 08:01 58 L 20 94/55 L 03/18/21 07:57 54 L 96 03/18/21 07:52 62 96 03/18/21 07:47 53 L 97 03/18/21 07:46 53 L 104/53 L 03/18/21 07:42 60 97 03/18/21 07:37 61 97 03/18/21 07:32 59 L 96 03/18/21 07:31 98.4 F 64 20 113/57 L 03/18/21 07:27 58 L 98 03/18/21 07:22 57 L 97 03/18/21 07:17 61 104/59 L 96 03/18/21 07:12 56 L 97 03/18/21 07:07 60 96 03/18/21 07:02 61 95 03/18/21 07:01 56 L 93/53 L 03/18/21 07:00 18 03/18/21 06:57 57 L 96 03/18/21 06:52 59 L 96 03/18/21 06:47 63 97 03/18/21 06:42 62 97 03/18/21 06:37 63 97 03/18/21 06:32 63 96 03/18/21 06:31 62 120/50 L 03/18/21 06:30 18 03/18/21 06:27 62 97 03/18/21 06:22 61 97 03/18/21 06:18 60 92/55 L 03/18/21 06:17 71 97 03/18/21 06:12 76 98 03/18/21 06:11 98.2 F Coding Level of Care Code None Diagnoses Post term over 40 weeks O48.0
[2021-03-18] MEDS ORDERED: ceFAZolin 2000MG 2,000 MG/15 ML SYR IV SCH (18:30)
[2021-03-18] MEDS ORDERED: LACTATED RINGER'S 1,000 ML IV SCH ×2 (18:30→20:53)
[2021-03-18] MEDS ORDERED: CITRIC ACID/SODIUM CITRATE 15 ML UDC PO SCH (18:30)
--- NOTE | 2021-03-18 20:36 | Anesthesia Procedure Note ---
Date of Service March 18, 2021 Anesthesia Post Epidural Note Vital Signs Vital Signs: Temp Pulse Resp BP Pulse Ox 37.3 C 83 16 106/58 L 99 03/18/21 19:08 03/18/21 20:34 03/18/21 19:08 03/18/21 20:30 03/18/21 20:29 Pain Intensity Left Lower Abdomen: Pain Intensity: 0 Notes Mental Status: alert / awake / arousable and participated in evaluation Patient Amnestic to Procedure: No Nausea / Vomiting: adequately controlled Pain: adequately controlled Airway Patency, RR, SpO2: stable & adequate BP & HR: stable & adequate Hydration State: stable & adequate Neuraxial Anesthesia: was administered and sensory block is resolving Anesthetic Complications: no major complications apparent and Pt Satisfied with anesthetic care Epidural: Removed without complications and With tip intact
[2021-03-18] MEDS ORDERED: NALOXONE HCL 0.08 MG in SYRINGE 1.8 ML IV PRN (20:44)
[2021-03-18] MEDS ORDERED: PROMETHAZINE HCL 12.5 MG in SODIUM CHLORIDE 0.9% 50 ML IV PRN (20:44)
[2021-03-18] MEDS ORDERED: MoRPHine SULFATE PF 1 MG/ML 10 ML AMP/VIAL INT SPINAL ONE (20:44)
[2021-03-18] MEDS ORDERED: NALBUPHINE HCL INJ 10 MG/ML AMP IV PRN (20:44)
[2021-03-18] MEDS ORDERED: MoRPHine SULFATE 2 MG/ML CARP IV PRN (20:44)
[2021-03-18] MEDS ORDERED: LACTATED RINGER'S 500 ML IV PRN (20:44)
[2021-03-18] MEDS ORDERED: diphenhydrAMINE 50 MG/ML VIAL IV PRN (20:44)
[2021-03-18] MEDS ORDERED: SODIUM CHLORIDE 0.9% 1000ML 1,000 ML IV SCH (20:45)
[2021-03-18] MEDS ORDERED: DC INTRASPINAL MORPHINE SCH (20:45)
[2021-03-18] MEDS ORDERED: NO NARCOTICS OR SEDATIVES SCH (20:45)
[2021-03-18] MEDS ORDERED: BENZOCAINE 20% AER SPR 82.5 GM CAN EXT PRN (20:53)
[2021-03-18] MEDS ORDERED: HYDROCORTISONE ACETATE 25 MG SUPP PR PRN (20:53)
[2021-03-18] MEDS ORDERED: SUPERCREAM 0.870% 15 GM JAR EXT PRN (20:53)
[2021-03-18] MEDS ORDERED: PROMETHAZINE HCL 25 MG in SODIUM CHLORIDE 0.9% 50 ML IV PRN (20:53)
[2021-03-18] MEDS ORDERED: SENNA 8.6 MG TAB PO PRN (20:53)
[2021-03-18] MEDS ORDERED: MAGNESIUM HYDROXIDE SUSP 30 ML UDC PO PRN (20:53)
--- NOTE | 2021-03-18 21:15 | Operative Report ---
PG Post Operative Report Pre & Post Diagnosis Operation Date: 03/18/21 19:00 Pre-Op Diagnosis: Induction of labor for post dates Deep Transverse Arrest Post-Op Diagnosis: Same as pre op I identified the patient and participated in the time-out.: Yes Procedure Operation Date: 03/18/21 19:00 Actual Procedures Low Transverse Section Surgeon Latosha Pompa MD Batt Machine Operator JOVANI Cho Estimated Blood Loss 400 Findings Consistent with Post-Op Diagnosis Specimens Placenta, Cord blood Anesthesia Type Spinal Complications none Disposition Accompanied Patient To Recovery: Yes Disposition: L&D Description of Procedure The patient was placed operating table in the supine position with a leftward tilt. She was prepped and draped in standard sterile fashion. The anesthetic was tested and found to be adequate. A time-out was held, identifying correct patient, procedure, positioning and preoperative antibiotics. There were no concerns. A Pfannenstiel skin incision was made with a knife and taken down to the underlying layer of fascia. The fascia was incised in the midline with the knife and taken out laterally with scissors. The superior edge of the fascial incision was grasped, elevated and dissected off the underlying rectus both superiorly and inferiorly. The muscles were bluntly in the midline. The peritoneum was entered bluntly. The incision was then stretched. The bladder retractor was placed. The vesicouterine peritoneum was identified, entered with scissors and taken out laterally with scissors. The bladder flap was created digitally. A hysterotomy incision was created transversely in the lower uterine segment, final entry being accomplished in a blunt manner with the heavy duty press operator's fingers. Clear amniotic fluid was encountered. The head was e ncountered in right occiput transverse position, slightly deflexed such that the anterior portion of the head / forehead were presenting to the cervix, with significant molding. The heavy duty press operator's hand was used to elevate the head to the hysterotomy, which was easily done. The head was delivered using mild fundal pressure, and the shoulders and body followed without difficulty. The cord was clamped and cut and the infant was then handed off to the awaiting tower hand. Cord blood was obtained. The placenta was Manually extracted. The uterus was exteriorized and cleared of all clot and debris with moistened laparotomy sponges. The hysterotomy incision was repaired in two layers, the first in a running locked layer, the second in an imbricating layer. The ovaries and tubes were seen to be normal bilaterally. The uterus was gently replaced in the abdomen, and the gutters were cleared of clot and debris. A final inspection of the hysterotomy revealed good hemostasis. The rectus muscles were allowed to reapproximate naturally. The fascia was then reapproximated with 1 Vicryl in a running nonlocked manner. The fascia was examined and found to be free of defect following closure. The subcutaneous tissue was copiously irrigated then the skin edges were closed with 4-0 monocryl in a subcuticular fashion. A dermabond dressing was applied. The ulloa was found to be draining clear yellow urine at completion of the procedure. I attest to the content of the Intraoperative Record and any orders documented therein. Any exceptions are noted below. I attest to the content of the Intraoperative Record and any orders documented therein. Any exceptions are noted below.
[2021-03-18] MEDS ORDERED: OXYTOCIN 30 UNITS in LACTATED RINGER'S 1,000 ML IV SCH (21:30)
[2021-03-18] MEDS: KETOROLAC 30 MG/ML VIAL IV PRN (22:07)
--- NOTE | 2021-03-19 05:55 | Obstetrical Progress Note ---
Date of Service <Ayanna Noble MD - Last Filed: 03/19/21 07:25> March 19, 2021 Assessment & Plan <Ayanna Noble MD - Last Filed: 03/19/21 07:25> (1) Encounter for care and examination after delivery: 30 yo now POD1 from LTCS at 40wk6d for failed IOL with deep transverse arrest -Continue routine care, anticipated d/c tomorrow -Vitals reviewed- HDS, afebrile -Blood type O+, GBS-, Rubella immune -Encourage ambulation, advance to regular diet -Remove ulloa -Pain control with ibuprofen, oxycodone PRN -Encourage -Hgb 10.4, asymptomatic -F/u in 6 weeks with OB <Latosha Pompa MD - Last Filed: 03/19/21 07:32> (1) Encounter for care and examination after delivery: Subjective <Ayanna Noble MD - Last Filed: 03/19/21 07:25> Ambulation: ambulating normally Voiding: ulloa catheter in place Passing Gas:: Yes Diet Tolerance:: clear liquids Lochia:: Moderate Feeding Type:: breast feeding Current Pain Level(1-10): 3 Pt and baby doing well, no acute events or complaints. Has not passed BM yet. Pain well controlled with medication. Received nausea PRNs last night with adequate relief. Review of Systems Denies fevers/chills. Denies dyspnea, cough. Denies chest pain. Denies breast pain or discharge. Denies dysuria. Denies headache. Denies back pain. Physical Exam <Ayanna Noble MD - Last Filed: 03/19/21 07:25> General: Alert, oriented, no acute distress Cardiac: Regular rate and rhythm, normal S1, S2. No murmurs appreciated. Respiratory: Clear to auscultation b/l with good air flow entry, symmetric chest rise and fall. No wheezes or crackles. No increased work of breathing or a ccessory muscle use Abdomen: Soft, nontender, nondistended. Fundus firm and palpable at 1 cm below umbilicus. Surgical incision clean, dry and intact without erythema, warmth or drainage. Bowel sounds appreciated. No guarding or rebound. Skin: No rashes or lesions Extremities: Warm, dry, well-perfused with capillary refill <2s b/l. No lower extremity edema, erythema or swelling. Negative Marty's sign b/l. Results & Data ([facility]) <Ayanna Noble MD - Last Filed: 03/19/21 07:25> Vital Signs (Past 12 Hours) Vital Signs Temp Pulse Pulse Resp BP BP Pulse Ox 03/19/21 05:30 16 95 03/19/21 04:25 37.1 C 85 16 105/68 97 03/19/21 03:25 16 96 03/19/21 02:30 16 95 03/19/21 01:00 18 96 03/19/21 00:00 37.0 C 80 16 98/61 L 96 03/18/21 23:00 18 95 03/18/21 22:50 37.2 C 72 18 101/63 95 03/18/21 22:25 18 03/18/21 22:24 81 96 03/18/21 22:19 81 121/63 97 03/18/21 22:14 77 97 03/18/21 22:09 70 117/60 96 03/18/21 22:04 80 97 03/18/21 21:59 79 114/68 96 03/18/21 21:54 74 96 03/18/21 21:49 37.1 C 83 18 107/56 L 97 03/18/21 21:44 78 96 03/18/21 21:39 81 117/68 97 03/18/21 21:34 91 H 97 03/18/21 21:29 88 91/53 L 97 03/18/21 21:24 103 H 97 03/18/21 21:19 96 H 108/56 L 97 03/18/21 21:14 97 H 97 03/18/21 21:09 105 H 16 109/55 L 97 03/18/21 21:04 101 H 97 03/18/21 20:59 98 H 16 98 03/18/21 20:58 108 H 110/58 L 03/18/21 20:56 109 H 92 03/18/21 20:54 106 H 95 03/18/21 20:51 92 H 111/59 L 03/18/21 20:49 107 H 18 99 03/18/21 20:47 16 03/18/21 20:44 86 99 03/18/21 20:39 89 105/58 L 99 03/18/21 20:34 83 100 03/18/21 20:30 88 106/58 L 03/18/21 20:29 88 16 99 03/18/21 20:24 92 H 99 03/18/21 20:19 37.4 C 83 16 112/57 L 99 03/18/21 19:18 80 99 03/18/21 19:13 80 100 03/18/21 19:08 37.3 C 80 16 99 03/18/21 19:04 104/55 L 03/18/21 19:02 76 99 03/18/21 18:57 64 100 03/18/21 18:52 66 100 03/18/21 18:49 63 105/56 L 03/18/21 18:47 61 100 03/18/21 18:42 62 100 03/18/21 18:37 68 99 03/18/21 18:32 63 101/58 L 99 03/18/21 18:30 37.7 C H 19 03/18/21 18:27 62 109/56 L 99 03/18/21 18:23 64 111/54 L 03/18/21 18:22 64 99 03/18/21 18:17 87 108/57 L 98 03/18/21 18:12 62 103/57 L 97 03/18/21 18:07 72 97 03/18/21 18:02 73 106/56 L 96 03/18/21 17:58 75 106/58 L 03/18/21 17:57 81 109/56 L 96 <Latosha Pompa MD - Last Filed: 03/19/21 07:32> Co-Signing Physician Notes Resident Physician Supervision Note: I interviewed and examined the patient. Discussed with Dr. Noble and agree with findings and plan as documented in the note. Any exceptions or clarifications are listed here: [ ] Documented By: Latosha Pompa MD, FACOG Resident Activity Tracking <Ayanna Noble MD - Last Filed: 03/19/21 07:25> Resident Involvement: Resident Care Provided Care Provided: OB Delivery
[2021-03-19 06:21] LABS: Basophils # (auto) 0.01 K/uL (0-0.2); Basophils % (auto) 0.1 %; Eosinophils # (auto) 0.03 K/uL (0-0.5); Eosinophils % (auto) 0.2 %; Hematocrit (blood only) 31.3 % (37-47); Hemoglobin 10.4 g/dL (12.0-16.0); Immature Granulocytes # (auto) 0.04 K/uL (0.00-0.02); Immature Granulocytes % (auto) 0.3 %; Lymphocytes # (auto) 1.07 K/uL (1.2-3.4); Lymphocytes % (auto) 7.2 %; Mean Corpuscular Hemoglobin 29.5 pg (25-34); Mean Corpuscular Hgb Conc 33.2 g/dL (32-36); Mean Corpuscular Volume 88.9 fL (80-100); Mean Platelet Volume 10.6 fL (7.4-10.4); Monocytes # (auto) 0.48 K/uL (0.11-0.59); Monocytes % (auto) 3.2 %; Neutrophils # (auto) 13.24 K/uL (1.4-6.5); Platelet Count 146 K/uL (130-400); RDW Coefficient of Variation 13.4 % (11.5-14.5); RDW Standard Deviation 42.9 fL (36.4-46.3); Red Blood Count 3.52 M/uL (4.2-5.4); White Blood Count 14.87 K/uL (4.8-10.8)
[2021-03-19] MEDS: FERROUS SULFATE 325 MG TAB PO SCH (08:33)
[2021-03-19] MEDS: DOCUSATE SODIUM 100 MG CAP PO SCH ×2 (08:33→20:05)
[2021-03-19] MEDS: PRENATAL VITAMIN 1 TAB PO SCH (08:33)
[2021-03-19] MEDS: KETOROLAC 30 MG/ML VIAL IV PRN ×2 (08:33→14:06)
[2021-03-19] MEDS: SIMETHICONE 80 MG CHEW PO SCH ×4 (08:33→20:06)
[2021-03-19] MEDS ORDERED: DIPHTHERIA/TETANUS/PERTUSSIS 0.5 ML SYR/VIAL IM ONE (09:00)
[2021-03-19] MEDS ORDERED: diphenhydrAMINE 50 MG/ML VIAL IV PRN (14:43)
[2021-03-19] MEDS ORDERED: MEPERIDINE HCL 50 MG/ML CARP IV PRN (14:43)
[2021-03-19] MEDS ORDERED: KETOROLAC 30 MG/ML VIAL IV PRN (14:43)
[2021-03-19] MEDS ORDERED: ONDANSETRON INJ 2 MG/ML 2 ML VIAL IV PRN (14:43)
[2021-03-19] MEDS ORDERED: diphenhydrAMINE Capsule 25 MG CAP PO PRN (14:43)
[2021-03-19] MEDS: IBUPROFEN 600 MG TAB PO PRN ×2 (18:23→22:41)
[2021-03-19] MEDS: oxyCODONE/ACETAMINOPHEN 5mg/325mg TAB PO PRN ×2 (18:24→22:41)
[2021-03-20] MEDS: IBUPROFEN 600 MG TAB PO PRN ×4 (06:23→21:01)
[2021-03-20] MEDS: oxyCODONE/ACETAMINOPHEN 5mg/325mg TAB PO PRN ×4 (06:23→21:01)
[2021-03-20 06:24] LABS: Hematocrit (blood only) 28.8 % (37-47); Hemoglobin 9.4 g/dL (12.0-16.0)
--- NOTE | 2021-03-20 07:55 | Obstetrical Progress Note ---
Date of Service March 20, 2021 Assessment & Plan (1) Encounter for care and examination after delivery: 30yo day 2 S/P pLTCS. Doing well. Routine care. Subjective Ambulation: ambulating normally Voiding: no voiding problems Passing Gas:: Yes Diet Tolerance:: regular diet Lochia:: Moderate Feeding Type:: breast feeding Physical Exam Constitutional WD/WN, vitals as above Respiratory normal respiratory effort; no respiratory distress and no labored breathing Gastrointestinal (Abdomen) Inspection/Auscultation: abdomen normal to inspection; abdomen not distended Percussion/Palpation: abdomen soft; abdomen nontender, no guarding and abdomen not rigid Incision C/D/I Genitourinary OB Exam Abdomen: + fundal height Fundus: + firm and + relation to umbilicus (Below); not tender or not boggy Results & Data ([facility]) Vital Signs (Past 12 Hours) Vital Signs Temp Pulse Resp BP Pulse Ox 03/20/21 00:20 36.5 C 78 18 106/69 03/19/21 20:00 36.7 C 83 18 114/76 96
[2021-03-20] MEDS: PRENATAL VITAMIN 1 TAB PO SCH (10:27)
[2021-03-20] MEDS: DOCUSATE SODIUM 100 MG CAP PO SCH ×3 (10:27→21:01)
[2021-03-20] MEDS: SIMETHICONE 80 MG CHEW PO SCH ×5 (10:28→21:01)
[2021-03-20] MEDS: FERROUS SULFATE 325 MG TAB PO SCH (10:29)
[2021-03-21] MEDS: oxyCODONE/ACETAMINOPHEN 5mg/325mg TAB PO PRN ×2 (02:39→11:47)
[2021-03-21] MEDS: IBUPROFEN 600 MG TAB PO PRN ×2 (02:39→11:47)
--- NOTE | 2021-03-21 06:14 | Obstetrical Progress Note ---
Date of Service <Ayanna Noble MD - Last Filed: 03/21/21 08:06> March 21, 2021 Assessment & Plan <Aynana Noble MD - Last Filed: 03/21/21 08:06> (1) Encounter for care and examination after delivery: 30 yo now POD3 from LTCS at 40wk6d for failed IOL with deep transverse arrest -D/c today, discharge discussed with patient, to be sent home with laxative and PRN oxycodone prescriptions -Vitals reviewed- HDS, afebrile -Blood type O+, GBS-, Rubella immune -Encourage -Hgb 9.4, asymptomatic -F/u in 6 weeks with OB <Judit Cervantes DO - Last Filed: 03/21/21 08:40> (1) Encounter for care and examination after delivery: Subjective <Ayanna Noble MD - Last Filed: 03/21/21 08:06> Ambulation: ambulating normally Voiding: ulloa catheter in place Passing Gas:: Yes Diet Tolerance:: clear liquids Lochia:: Moderate Feeding Type:: breast feeding Current Pain Level(1-10): 4 Pt and baby doing well, no acute events or complaints. Has not passed BM yet. Pain well controlled with medication.. Review of Systems Denies fevers/chills. Denies dyspnea, cough. Denies chest pain. Denies breast pain or discharge. Denies dysuria. Denies headache. Denies back pain. Physical Exam <Ayanna Noble MD - Last Filed: 03/21/21 08:06> General: Alert, oriented, no acute distress Cardiac: Regular rate and rhythm, normal S1, S2. No murmurs appreciated. Respiratory: Clear to auscultation b/l with good air flow entry, symmetric chest rise and fall. No wheezes or crackles. No increased work of breathing or accessory muscle use Abdomen: Soft, nontender, nondistended. Fundus firm and palpable at 2 cm below umbilicus. Surgical incision clean, dry and intact without erythema, warmth or drainage. Bowel sounds appreciated. No guarding or rebound. Skin: No rashes or lesions Extremities: Warm, dry, well-perfused with capillary refill <2s b/l. No lower extremity edema, erythema or swelling. Negative Marty's sign b/l. Results & Data ([facility]) <Ayanna Noble MD - Last Filed: 03/21/21 08:06> Vital Signs (Past 12 Hours) Vital Signs Temp Pulse Resp BP Pulse Ox 03/20/21 23:26 36.7 C 74 16 112/72 97 03/20/21 19:11 36.7 C 80 16 113/76 98 <Judit Cervantes DO - Last Filed: 03/21/21 08:40> Co-Signing Physician Notes Resident Physician Supervision Note: I was present with Dr. Garnett during the history and exam. I discussed the case with the resident and agree with the findings and plan as documented in the note. Any exceptions or clarifications are listed here: POD#3 doing well. Reviewed DC instructions. Rx sent for motrin, percocet, stool softener. Followup in office 6w. Documented By: Judit Cervantes DO
[2021-03-21] MEDS: DOCUSATE SODIUM 100 MG CAP PO SCH (07:59)
[2021-03-21] MEDS: SIMETHICONE 80 MG CHEW PO SCH (07:59)
[2021-03-21] MEDS: FERROUS SULFATE 325 MG TAB PO SCH (07:59)
[2021-03-21] MEDS: PRENATAL VITAMIN 1 TAB PO SCH (07:59)
--- NOTE | 2021-03-23 16:00 | Discharge Summary ---
Date of Service March 23, 2021 Discharge Data Consultations 03/17/21 23:16 Consult Anesthesiology Stat Procedures Performed Operation Date: 03/18/21 19:00 Actual Procedures p Primary Section for the of a live female child at 1943. - Latosha Pompa MD Coding Level of Care Code None
== END 2021-03-21 12:44 | disposition home or self-care (01) | DRG 788 ==
LOC: OPB 23:04 → 4S1 23:05 → 4S2 03-18 22:27